=== PATIENT | male | born 1970 | race African-American/Black ===

== ENCOUNTER 2019-04-25 08:40 | Emergency (ER) | payer SELFPAY ==
[~2019-04-25] VITALS: Ht 167.6 cm; Wt 75.0 kg
[2019-04-25] MEDS ORDERED: BACITRACIN ZINC OINT UDPKT TOP ONE (09:30)
[2019-04-25] MEDS ORDERED: BACITRACIN 15GM TUBE TOP SCH (09:30)
[2019-04-25] MEDS ORDERED: TETANUS, DIPHTHERIA, PERTUSSIS VAC/PF 0.5ML (>7YR OLD) IM ONE (09:30)
[2019-04-25] MEDS ORDERED: LIDOCAINE 1%/EPI 1:100,000 10 ML VIAL IJ ONE (09:30)
[2019-04-25] MEDS ORDERED: LIDOCAINE HCL/EPINEPHRINE 1%-EPI 1:100,000 20 ML VIAL INFIL SCH (09:30)
[2019-04-25] MEDS ORDERED: LIDOCAINE HCL/PF 1% 10 MG/ML 5ML VIAL IJ ONE (10:00)
[2019-04-25] MEDS ORDERED: HYDROCODONE/ACETAMINOPHEN 5/325MG TABLET PO ONE (10:00)
[2019-04-25] MEDS ORDERED: KETOROLAC 15MG/ML VIAL IM ONE (11:30)
[2019-04-25 12:03] VITALS: BP 117/88
== END 2019-04-25 12:01 | disposition home or self-care (01) ==
LOC: ER 08:40
DX: S01.312A Laceration without foreign body of left ear, initial encounter (principal); M25.512 Pain in left shoulder; E11.9 Type 2 diabetes mellitus without complications; F17.200 Nicotine dependence, unspecified, uncomplicated; V43.52XA Car driver injured in collision with other type car in traffic accident, initial encounter; Y93.89 Activity, other specified; Y92.410 Unspecified street and highway as the place of occurrence of the external cause; Z98.890 Other specified postprocedural states
CPT/HCPCS: 73030; 82962; 90471; 90715; 96372; 99283; J1885; J3490; Z7610